=== PATIENT | female | born 1985 | race Caucasian/White ===

== ENCOUNTER 2017-03-27 21:31 | Emergency (ER) | END 2017-03-28 04:52 | disposition home or self-care (01) | DX: R11.10 Vomiting, unspecified (principal); R07.9 Chest pain, unspecified | CPT/HCPCS: 36415; 71010; 76705; 80053; 83690; 85025; 93005; 96361; 96374; 96375; J1200; J2405; J2765; J7030; Z7502; Z7610 ==

== ENCOUNTER 2017-08-29 10:29 | Emergency (ER) | payer OTHER ==
[~2017-08-29] VITALS: Wt 60.0 kg
[~2017-08-29 10:29] MED LIST: CIPR500T4 PO; FAMO-96 PO; IBUP800T25 PO; OMEP20CA16 PO; ONDA4TAB14 PO
[2017-08-29] MEDS ORDERED: ONDANSETRON (ODT) 4 MG TAB ODT STA ×2 (11:37→14:29)
[2017-08-29] MEDS ORDERED: ACETAMINOPHEN 325 MG TAB PO ONE (12:00)
[2017-08-29] MEDS ORDERED: SOD CHLORIDE 0.9% 1,000 ML IV ONE (13:00)
[2017-08-29] MEDS ORDERED: SODI126M NASAL (15:15)
[2017-08-29] MEDS ORDERED: ONDA4TAB14 PO (15:15)
--- NOTE | 2017-08-29 15:30 | ERD ---
ER Documentation Chief Complaint Chief Complaint vomiting since sunday night HPI 32-year-old female complaining of nausea vomiting 3 days. Patient stated that she is unable to keep down any fluids. Patient also reports nonproductive cough , headache, and chills. States that she is not having heartburn because of the vomiting. She has a Bree IUD, LMP is 08/20/2017. Denies shortness of breath. Denies fever. Denies diarrhea. Patient smokes half pack of cigarettes per day , and drinks about 3 vodka per day. She tried to smoke marijuana once yesterday to see if she can stop the nausea or vomiting, but it did not help. As any other illicit drug use. Denies any prior medical history. ROS All systems reviewed and are negative except as per history of present illness. Medications Home Meds Active Scripts Sodium Chloride (Saline Nasal Mist) 126 Ml Mist, 2 SPRAY NASAL Q2H Y for NASAL CONGESTION, #1 BOTTLE Prov:PATIRCA PANDA. [employer]EL [employer]INE [employer] 08/29/17 Ondansetron (Ondansetron Odt) 4 Mg Tab.rapdis, 4 MG PO Q6H Y for NAUSEA AND/OR VOMITING, #10 TAB Prov:PATRICA PANDA. DIESEL ENGINE TESTER 08/29/17 Omeprazole* (Omeprazole*) 20 Mg Capsule.dr, 20 MG PO BID, #20 Prov:LAKSHMI FINE 03/28/17 Famotidine* (Pepcid*) 20 Mg Tablet, 20 MG PO BID for 14 Days, TAB Prov:LAKSHMI FINE 03/28/17 Ondansetron (Ondansetron Odt) 4 Mg Tab.rapdis, 4 MG PO Q6H Y for NAUSEA AND/OR VOMITING, #20 TAB Prov:LAKSHMI FINE 03/28/17 Ibuprofen* (Motrin*) 800 Mg Tab, 800 MG PO Q6, #30 TAB Prov:MAMTA TRUJILLO PA-C 11/02/15 Ciprofloxacin Hcl* (Ciprofloxacin Hcl*) 500 Mg Tablet, 500 MG PO BID for 7 Days , TAB Prov:MAMTA TRUJILLO PA-C 11/02/15 Allergies Allergies: Coded Allergies: Penicillins (Verified Allergy, Unknown, rash, 03/27/17) Sulfa (Sulfonamide Antibiotics) (Verified Allergy, Unknown, rash, 03/27/17) cefaclor (Verified Allergy, Unknown, rash, 03/27/17) PMhx/Soc Medical and Surgical Hx: pt denies Surgical Hx History of Surgery: No Anesthesia Reaction: No Hx Respiratory Disorders: No Hx Cardiac Disorders: No Hx Psychiatric Problems: No Hx Miscellaneous Medical Probl: No Hx Alcohol Use: Yes (vodka 3 cups/day.drinks everyday.lat intake 3 days ago) Hx Substance Use: Yes (marijuana weeds for headaches.lat intake 08/28/17 at 4pm.) Hx Tobacco Use: Yes Smoking Status: Current every day smoker Physical Exam Vitals Vital Signs Date Time Temp Pulse Resp B/P Pulse Ox O2 Delivery O2 Flow Rate FiO2 08/29/17 10:31 99.3 54 18 137/65 99 Physical Exam General: Well-developed, well-nourished, conscious and coherent, in no distress Skin: Warm and dry without rash, good texture and turgor Head: Normocephalic without evidence of trauma Eyes: Sclera and conjunctivae normal; pupils equal, round, and reactive to light; extraocular movements are intact Nose/Face: Clear rhinorrhea Chest: Normal AP diameter. Good expansion without retractions. Nontender. Lungs are clear to auscultate bilaterally with good tidal volume Heart: Regular rate and rhythm. No murmur, rub, or gallops heard Abdomen: Soft, epigastric tenderness without masses, guarding, or rebound. Bowel sounds are active. No hepatosplenomegaly Back: Without spinal or CVA tenderness Extremities: Full range of motion. Good strength bilaterally. No clubbing, cyanosis, or edema. Peripheral pulses are intact. Sensation intact Neuro: Alert and oriented 4, GCS 15. Cranial nerves grossly intact. Motor and sensory exams nonfocal. Moves all extremities. Speech clear. Gait normal Results 24 hrs Current Medications Medications (Trade) Dose Ordered Sig/Bonnie Route PRN Reason Start Time Stop Time Status Last Admin Dose Admin Ondansetron HCl (Zofran Odt) 4 mg ONCE STAT ODT 08/29/17 11:37 08/29/17 11:39 DC 08/29/17 11:54 Acetaminophen 650 mg 650 mg ONCE ONCE PO 08/29/17 12:00 08/29/17 12:01 DC 08/29/17 11:54 Sodium Chloride (NS) 1,000 ml @ 1,000 mls/hr Q1H ONCE IV 08/29/17 13:00 08/29/17 13:59 DC 08/29/17 13:04 Ondansetron HCl (Zofran Odt) 4 mg ONCE STAT ODT 08/29/17 14:29 08/29/17 14:30 DC 08/29/17 14:32 Procedures/MDM Well-appearing 32-year-old female presented ED with nausea, vomiting, and headache 3 days. Patient is given Zofran ODT in the ED. Patient reports she vomited during fluid challenge after Zofran. The Tylenol given to her did not relieve her headache. Patient stated that she feels dehydrated. Normal saline 1 L fluid bolus was given to the patient. After the fluid bolus, patient reports feeling much better. This time, patient passed p.o. fluid challenge after additional Zofran. Patient is afebrile, in no respiratory distress. Lungs are clear to auscultate. I doubt that patient has pneumonia or bronchitis. Patient does not have any abdominal tenderness on palpation. I doubt acute appendicitis, cholecystitis, bowel obstruction or other acute abdomen. Patient's symptoms is consistent with that of viral syndrome. Patient does not have any active vomiting, is able to maintain by mouth fluid intake. Patient does not show any sign of dehydration. Patient also reports using marijuana yesterday. I cannot completely rule out clinical vomiting due to cannabis use. Patient appears well, stable for discharge and outpatient management. Medical decision making shared with patient and family. Education provided to patient and family. Patient and family expressed understanding of the plan. Medications on discharge: Zofran, saline nasal spray. Follow-up: Primary care provider in 2-3 days or return to ED if worse. Disclaimer: Inadvertent spelling and grammatical errors are likely due to EHR/ dictation software use and do not reflect on the overall quality of patient care. Also, please note that the electronic time recorded on this note does not necessarily reflect the actual time of the patient encounter. Departure Diagnosis: Primary Impression: Viral syndrome Condition: Stable Patient Instructions: Viral Syndrome (Adult) Referrals: COMM[facility]ITY CLIN[facility] YOU HAVE RECEIVED A MEDICAL SCREENING EXAM AND THE RESULTS INDICATE THAT YOU DO NOT HAVE A CONDITION THAT REQUIRES URGENT TREATMENT IN THE EMERGENCY DEPARTMENT. FURTHER EVALUATION AND TREATMENT OF YOUR CONDITION CAN WAIT UNTIL YOU ARE SEEN IN YOUR DOCTORS OFFICE WITHIN THE NEXT 1-2 DAYS. IT IS YOUR RESPONSIBILITY TO MAKE AN APPOINTMENT FOR FOLOW-UP CARE. IF YOU HAVE A PRIMARY DOCTOR --you should call your primary doctor and schedule an appointment IF YOU DO NOT HAVE A PRIMARY DOCTOR YOU CAN CALL OUR PHYSICIAN REFERRAL HOTLINE AT IF YOU CAN NOT AFFORD TO SEE A PHYSICIAN YOU CAN CHOSE FROM THE FOLLOWING [facility] [id number] [facility] [address] [facility] [facility] [address] [facility] [address] [facility]. [facility] [address] [facility] [facility]. [address] Additional Instructions: Call your primary care doctor TOMORROW for an appointment during the next 2-3 days.See the doctor sooner or return here if your condition worsens before your appointment time. PATRICA PANDA NP Aug 29, 2017 15:30
[2017-08-29 15:50] VITALS: BP 115/63; PULSE 60; RESP 20; TEMP 98.2
== END 2017-08-29 15:50 | disposition home or self-care (01) ==
LOC: FTE 10:29
DX: B34.9 Viral infection, unspecified (principal); F17.210 Nicotine dependence, cigarettes, uncomplicated
CPT/HCPCS: J7030; Z7610

== ENCOUNTER 2018-04-26 08:45 | Emergency (ER) | END 2018-04-26 14:42 | disposition home or self-care (01) ==

== ENCOUNTER 2018-06-17 10:22 | Emergency (ER) | END 2018-06-17 15:00 | disposition home or self-care (01) ==

== ENCOUNTER 2018-07-12 18:51 | Emergency (ER) | END 2018-07-12 22:22 | disposition home or self-care (01) ==